=== PATIENT | female | born 1975 | race Two or more races ===

== ENCOUNTER 2024-05-25 12:17 | Emergency (ER) | payer MEDICAID, OTHER ==
[~2024-05-25] VITALS: Ht 162.6 cm; Wt 82.9 kg
[2024-05-25] MEDS ORDERED: BRIV1TAB7 PO ×2 (13:36→13:58)
[2024-05-25] MEDS ORDERED: PANT40TA2 PO (13:36)
--- NOTE | 2024-05-25 13:46 | ED.PDOC ---
History of Present Illness HPI Comments This is a 48-year-old female with multiple medical problems is here for refill on her Protonix as well as Brivlact. Patient has no physical complaints at this time. No history of recent seizures in the last couple of days. Chief Complaint: Seizure Time Seen by MD: 13:14 Primary Care Provider: NEGIN Rivera Notes: Nurses Notes, Medications, Allergies Allergies: Coded Allergies: Phenobarbital (Verified Allergy, Severe, 05/25/24) Information Source: Patient Mode of Arrival: Ambulatory Past Medical History PAST MEDICAL HISTORY: Seizures Past Medical History (Other): Hydrocephalus Cerebral palsy Surgical History: Denies all surgeries MEDICAL BILLING CODER History: No Pertinent MEDICAL BILLING CODER History Family History Family History: Reviewed,noncontributory to illness Social History Smoker: Non-Smoker Alcohol: Denies ETOH Use Drugs: Denies Drug Use Lives In: Home Constitutional: denies: chills, diaphoresis, fatigue, fever, malaise, sweats, weakness, others Respiratory: denies: cough, hemoptysis, orthopnea, SOB at rest, shortness of breath, SOB with excertion, stridor, wheezing, others Cardiovascular: denies: chest pain, dizzy spells, diaphoresis, Dyspnea on exertion, edema, irregular heart beat, left arm pain, lightheadedness, palpitations, PND, syncope, others Gastrointestinal: denies: abdomen distended, abdominal pain, blood streaked bowels, constipated, diarrhea, dysphagia, difficulty swallowing, hematemesis, melena, nausea, poor appetite, poor fluid intake, rectal bleeding, rectal pain, vomiting, others Genitourinary: denies: abnormal vagina bleeding, burning, dyspareunia, dysuria, flank pain, frequency, hematuria, incontinence, pain, , vagina discharge, urgency, others Musculoskeletal: denies: back pain, gout, joint pain, joint swelling, muscle pain, muscle stiffness, neck pain, others Integumetry: denies: bruises, change in color, change in hair/nails, dryness, laceration, lesions, lumps, rash, wounds, others Allergic/Immunocompromised: denies: Difficulty Healing, Frequent Infections, Hives, Itching, others Hematologic/Lymphatic: denies: anemia, blood clots, easy bleeding, easy bruising, swollen glands, others Physical Exam General Appearance: No Apparent Distress, None HEENT: Normal ENT Inspection, PERRL/EOMI, Pharynx Normal, TMs Normal Neck: Normal, Normal Inspection Respiratory: Lungs Clear, Normal Breath Sounds Cardiovascular: Regular Rate/Rhythm Breast Exam: Deferred Gastrointestinal: Non Tender, Normal Bowel Sounds Genitalia: Deferred Pelvic: Deferred Rectal: Deferred Extremities: Normal range of motion, Non-tender Neurologic: Alert, Normal Affect, Normal Mood Cerebellar Function: Normal Reflexes: NOT DONE Skin: Dry, Normal Color, Warm Lymphatic: No Adenopathy Was a procedure done? Was a procedure done?: No Differential Dx Considerations may include: Seizure activity X-Ray, Labs, Meds, VS Vital Signs Date Time Temp Pulse Resp B/P (MAP) Pulse Ox O2 Delivery O2 Flow Rate FiO2 05/25/24 12:49 98.3 75 16 143/74 (97) 99 X-Ray, Labs, Meds, VS Comment Patient seen and examined by me. Patient is here primarily for medication refill on her seizure meds plus her Protonix. She has no physical complaints. I will give her refills on both meds and she can follow up with her primary care doctor for further medications. Time of 1ST Reevaluation: 13:33 Reevaluation 1ST: Unchanged Patient Education/Counseling: Diagnosis, Treatment, Prognosis, Need For Follow Up Family Education/Counseling: No Family Present Departure 1 Departure Time of Disposition: 13:33 Impression: Primary Impression: Medication refill Disposition: 01 HOME / SELF CARE / HOMELESS Condition: Good Additional Instructions: Please follow-up with your regular doctor for future refills of your medications Start your medications right away after you fill the prescription today e-Prescriptions Pantoprazole Sodium Sesquihydr (Protonix) 40 Mg Tab 40 MG PO DAILY for 14 Days, #14 TAB Prov: GATO BACK 05/25/24 Discharged With: Self Critical Care Note Critical Care Time?: No Stability Stability form required: No GATO BACK May 25, 2024 13:46
[2024-05-25 13:47] VITALS: BP 143/74; PULSE 75; RESP 16; TEMP 98.3; O2SAT 99
== END 2024-05-25 13:47 | disposition home or self-care (01) ==
LOC: ER 12:17
DX: R56.9 Unspecified convulsions (principal); Z76.0 Encounter for issue of repeat prescription; Z88.8 Allergy status to other drugs, medicaments and biological substances

== ENCOUNTER 2024-08-22 18:08 | Inpatient (IN) | payer MEDICARE, MEDICAID ==
[~2024-08-22] VITALS: Ht 152.4 cm; Wt 83.4 kg
[~2024-08-22 18:08] MED LIST: BRIV1TAB7 PO; PANT40TA2 PO
--- NOTE | 2024-08-22 19:14 | DVH ---
EXAM: XR Right Shoulder Complete, 2 or More Views CLINICAL INDICATION: FALL R/O FX VS DISLOCATION TECHNIQUE: Two or more views of the right shoulder. COMPARISON: None FINDINGS: BONES/JOINTS: Unremarkable. No acute fracture. No dislocation. SOFT TISSUES: Unremarkable. OTHER FINDINGS: . None. IMPRESSION: No acute fracture.
--- NOTE | 2024-08-22 19:16 | DVH ---
EXAM: XY CERVICAL SPINE 3V HISTORY: FALL COMPARISON: None Findings: Patient probably has a ventricular peritoneal shunt along the right aspect of the neck. Lateral masses C1 and C2 are well aligned. There is loss of lordotic curvature ins lateral study ther e is retrolisthesis of C4 upon C5 of approximately 3 mm. There is probably generalized disc disease p revertebral soft tissues unremarkable. Airway is patent. IMPRESSION: 1. Probable underlying disc disease
--- NOTE | 2024-08-22 20:54 | ED.PDOC ---
Enrique. trauma (HPI) HPI Comments 49-year-old female came to ER for fall injury. Patient has history of cerebral palsy, and recently has been having Fall injuries. Had a ground level fall again earlier today when she slipped and tripped and landed badly on her right shoulder and neck area. Denies any head trauma or loss of consciousness. Patient complaining that she could not move her right arm. Chief Complaint: Fall Injury Time Seen by MD: 20:53 Primary Care Provider: NEGIN Rivera notes: Nurses Notes Allergies: Coded Allergies: Phenobarbital (Verified Allergy, Severe, 05/25/24) Home Meds Active Scripts Brivaracetam (Briviact) 100 Mg Tab, 100 MG PO BID for 30 Days, #60 TAB Prov:OLI VARGAS MD 05/25/24 Pantoprazole Sodium Sesquihydr (Protonix) 40 Mg Tab, 40 MG PO DAILY for 14 Days, #14 TAB Prov:GATO BACK 05/25/24 Reported Medications Brivaracetam (Briviact) 100 Mg Tab, 100 MG PO BID for 14 Days, #28 TAB 05/25/24 Information Source: Patient Mode of Arrival: Ambulatory Severity: Moderate Timing: Hours Duration: Since onset Prehospital treatment: None Location: Neck, (R) Shoulder Location of neck pain: (R) Lateral Location of laceration: None Mechanism: Fall Past Medical History PAST MEDICAL HISTORY: Seizures Past Medical History (Other): Cerebral palsy Surgical History: Denies all surgeries TALENT ADVISOR History: Denies all TALENT ADVISOR Hx Social History Smoker: Non-Smoker Alcohol: Denies ETOH Use Drugs: Denies Drug Use Lives In: Home Constitutional: denies: chills, diaphoresis, fatigue, fever, malaise, sweats, weakness, others Respiratory: denies: cough, hemoptysis, orthopnea, SOB at rest, shortness of breath, SOB with excertion, stridor, wheezing, others Cardiovascular: denies: chest pain, dizzy spells, diaphoresis, Dyspnea on exertion, edema, irregular heart beat, left arm pain, lightheadedness, palpitations, PND, syncope, others Gastrointestinal: denies: abdomen distended, abdominal pain, blood streaked bowels, constipated, diarrhea, dysphagia, difficulty swallowing, hematemesis, melena, nausea, poor appetite, poor fluid intake, rectal bleeding, rectal pain, vomiting, others Genitourinary: denies: abnormal vagina bleeding, burning, dyspareunia, dysuria, flank pain, frequency, hematuria, incontinence, pain, , vagina discharge, urgency, others Neurological: denies: dizziness, fainting, headache, left sided numbness, left sided weakness, numbness, paresthesia, pre-existing deficit, right sided numbness, right sided weakness, seizure, speech problems, tingling, tremors, weakness, others Musculoskeletal: reports: joint pain (Right shoulder), neck pain; denies: back pain, gout, joint swelling, muscle pain, muscle stiffness, others Integumetry: denies: bruises, change in color, change in hair/nails, dryness, laceration, lesions, lumps, rash, wounds, others Allergic/Immunocompromised: denies: Difficulty Healing, Frequent Infections, Hives, Itching, others Hematologic/Lymphatic: denies: anemia, blood clots, easy bleeding, easy bruising, swollen glands, others Endocrine: denies: excessive hunger, excessive sweating, excessive thirst, excessive urination, flushing, intolerance to cold, intolerance to heat, unexplained weight gain, unexplained weight loss, others Psychiatric: denies: anxiety, bipolar disorder, depression, hopeless, panic disorder, schizophrenia, sleepless, suicidal, others Physical Exam General Appearance: No Apparent Distress, Normal HEENT: Normal ENT Inspection, Pharynx Normal, TMs Normal Neck: Full Range of Motion, Non-Tender, Normal, Normal Inspection Respiratory: Chest Non-Tender, Lungs Clear, No Accessory Muscle Use, No Respiratory Distress, Normal Breath Sounds Cardiovascular: No Edema, No JVD, No Murmur, No Gallop, Normal Peripheral Pulses, Regular Rate/Rhythm Breast Exam: Deferred Gastrointestinal: No Organomegaly, Non Tender, No Pulsatile Mass, Normal Bowel Sounds, Soft Genitalia: Deferred Pelvic: Deferred Rectal: Deferred Extremities: No calf tenderness, Normal capillary refill, Normal inspection, Normal range of motion, Non-tender, No pedal edema Musculoskeletal : Apperance: Normal Neurologic: Alert, district adviser II-XII nml as Tested, No Motor Deficits, Normal Affect, Normal Mood, No Sensory Deficits Cerebellar Function: Normal Reflexes: Normal Skin: Dry, Normal Color, Warm Lymphatic: No Adenopathy Was a procedure done? Was a procedure done?: No Differential Diagnosis Multiple Trauma: Fractures, Abrasions, Contusion Neck Injury: Cervical Muscle Spasm, Cervical Sprain, Cervical Strain X-Ray, Labs, Meds, VS Vital Signs Date Time Temp Pulse Resp B/P (MAP) Pulse Ox O2 Delivery O2 Flow Rate FiO2 08/22/24 18:32 98.8 79 18 148/79 (102) 99 Lab Test 08/22/24 22:00 Range/Units White Blood Count 11.6 H 4.4-10.8 10^3/uL Red Blood Count 5.20 4.0-5.20 10^6/uL Hemoglobin 14.9 12.2-16.2 g/dL Hematocrit 44.4 36.0-46.0 % Mean Corpuscular Volume 85.4 80.0-100.0 fL Mean Corpuscular Hemoglobin 28.7 28.0-32.0 pg Mean Corpuscular Hemoglobin Concent 33.6 32.0-36.0 g/dL Red Cell Distribution Width 14.4 H 11.8-14.3 % Platelet Count 282 140-450 10^3/uL Mean Platelet Volume 7.3 6.9-10.8 fL Neutrophils (%) (Auto) 83.2 H 37.0-80.0 % Lymphocytes (%) (Auto) 11.7 10.0-50.0 % Monocytes (%) (Auto) 4.2 0.0-12.0 % Eosinophils (%) (Auto) 0.4 0.0-7.0 % Basophils (%) (Auto) 0.5 0.0-2.0 % Neutrophils # (Auto) 9.7 H 1.6-8.6 10 ^3/uL Lymphocytes # (Auto) 1.4 0.4-5.4 10 ^3/uL Monocytes # (Auto) 0.5 0-1.3 10 ^3/uL Eosinophils # (Auto) 0 0-0.8 10 ^3/uL Basophils # (Auto) 0.1 0-0.2 10 ^3/uL Nucleated Red Blood Cells 0.0 % Sodium Level Pending Potassium Level Pending Chloride Level Pending Carbon Dioxide Level Pending Anion Gap Pending Blood Urea Nitrogen Pending Creatinine Pending Glomerular Filtration Rate Calc Pending BUN/Creatinine Ratio Pending Serum Glucose Pending Calcium Level Pending Current Medications Medications (Trade) Dose Ordered Sig/Marcello Route Start Time Stop Time Status Last Admin Acetaminophen (Tylenol Tablet) 650 mg ONCE ONCE PO 08/22/24 21:00 08/22/24 21:31 DC 08/22/24 22:03 Time of 1ST Reevaluation: 20:47 Reevaluation 1ST: Unchanged Patient Education/Counseling: Diagnosis, Treatment Family Education/Counseling: No Family Present Departure 1 Departure Time of Disposition: 22:48 (Patient with a fall is now inability to lift her right arm. Imaging so far is benign. Patient may have a neurapraxia. We will admit patient for further workup and neurology consultation.) Impression: Primary Impression: Right arm weakness Disposition: ADMITTED INPATIENT Admit to: Med Surg Condition: Serious Critical Care Note Critical Care Time?: Yes Critical care comment: Right arm weakness Authorized and Performed by: Oli Vargas MD Total critical care time: Approximately 37 minutes Due to a high probability of clinically significant, life threatening deterioration, the patient required my highest level of preparedness to intervene emergently and I personally spent this critical care time directly and personally managing the patient. This critical care time included obtaining a history; examining the patient; pulse oximetry; ordering and review of studies; arranging urgent treatment with development of a management plan; evaluation of patient's response to treatment; frequent reassessment; and, discussions with other providers. This critical care time was performed to assess and manage the high probability of imminent, life-threatening deterioration that could result in multi-organ failure. It was exclusive of separately billable procedures and treating other patients and teaching time. Please see my other sections and the rest of the note for further information on patient assessment and treatment. Stability Stability form required: No Heart Score Heart Score: Heart Score Response (Comments) Value History N/A 0 EKG N/A 0 Age N/A 0 Risk Factors N/A 0 Troponin N/A 0 Total 0 I personally scribed for OLI VARGAS MD ([email or web address]) on 08/22/24 at 20:54. Electronically submitted by Pierre Rm ([employer]). I personally scribed for OLI VARGAS MD (CHIQUIS) on 08/22/24 at 21:02. Electronically submitted by Pierre Rm ([employer] OLI VARGAS MD Aug 22, 2024 20:54
--- NOTE | 2024-08-22 21:18 | DVH ---
EXAM: XY R HUMERUS XRAY CLINICAL HISTORY: fall COMPARISON: None TECHNIQUE: XY R HUMERUS XRAY Findings/Impression: 2 views of the right humerus. There is no evidence of an acute fracture, dislocation, blastic, or lytic lesions. No radiopaque foreign bodies. No superficial soft tissue abnormalities.
[2024-08-22] MEDS: ACETAMINOPHEN 325 MG TAB PO ONE (22:03)
[2024-08-22 22:27] LABS: Basophils # (auto) 0.1 10 ^3/uL (0-0.2); Basophils % (auto) 0.5 % (0.0-2.0); Eosinophils # (auto) 0 10 ^3/uL (0-0.8); Eosinophils % (auto) 0.4 % (0.0-7.0); Hematocrit 44.4 % (36.0-46.0); Hemoglobin 14.9 g/dL (12.2-16.2); Lymphocytes # (auto) 1.4 10 ^3/uL (0.4-5.4); Lymphocytes % (auto) 11.7 % (10.0-50.0); Mean Corpuscular Hemoglobin 28.7 pg (28.0-32.0); Mean Corpuscular Hgb Conc. 33.6 g/dL (32.0-36.0); Mean Corpuscular Volume 85.4 fL (80.0-100.0); Monocytes # (auto) 0.5 10 ^3/uL (0-1.3); Monocytes % (auto) 4.2 % (0.0-12.0); Neutrophils # (auto) 9.7 10 ^3/uL (1.6-8.6); Neutrophils % (auto) 83.2 % (37.0-80.0); Platelet Count (auto) 282 10^3/uL (140-450); Red Cell Distribution Width 14.4 % (11.8-14.3); White Blood Cell 11.6 10^3/uL (4.4-10.8)
--- NOTE | 2024-08-22 22:32 | DVH ---
CT HEAD WITHOUT CONTRAST INDICATION: right arm weakness COMPARISON: None TECHNIQUE: CT of the head without intravenous contrast. RADIATION DOSE: CTDIvol: mGy, DLP: mGy*cm FINDINGS: Right parietal VENEER STOCK GRADER shunt catheter noted with tip in the body of the left lateral ventricle. There is m ild right-sided colpocephaly; the ventricular size is otherwise unremarkable with no hydrocephalus. T here is no evidence of intracranial hemorrhage, extra-axial collection, mass effect, midline shift, herniation or hydrocephalus. 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 The sulci and cister ns are normal. Minimal mucosal thickening in left maxillary sinus; otherwise unremarkable. Mastoid ai r cells and middle ear cavities are clear. Right parietal aydee hole; calvarium is otherwise unremarka ble. IMPRESSION: No acute intracranial abnormality identified.
[2024-08-22 22:53] LABS: Potassium 3.5 mmol/L (3.5-5.1); Sodium 139 mmol/L (136-145)
[2024-08-22 22:54] LABS: Anion Gap 11 (5-15); Calcium 9.8 mg/dL (8.7-10.4)
[2024-08-22 23:00] LABS: BUN/Creatinine Ratio 15.3 (10.0-20.0); Blood Urea Nitrogen 9 mg/dL (9-23)
[2024-08-22 23:03] LABS: Carbon Dioxide 19 mmol/L (20-31); Chloride 109 mmol/L (98-107); Glucose 115 mg/dL (74-106)
[2024-08-23] MEDS ORDERED: DOCUSATE SOD 100 MG CAP PO PRN (01:15)
--- NOTE | 2024-08-23 01:56 | DVHHP2 ---
History of Present Illness Reason for Visit: Right arm weakness History of Present Illness The patient is a 49-year-old female with past medical history of seizure and cerebral palsy who presented to [facility] ED for evaluation of fall injury at home. Patient reports she had ground level fall earlier today when she slipped and fall landing badly on her right shoulder and neck area. Patient has been experiencing right hand pain, rating 9/10 numeric scale, weakness, getting worse that prompted this visit. Patient was seen and evaluated in the ED, laboratory data shows WBC 11.6, platelets 282, sodium 139, potassium 3.5, BUN 9, creatinine 0.59, GFR 110, glucose 115, calcium 9.8, blood pressure 140/79, heart rate 79, temperature 98.8 F, O2 saturation 99% on room air. Imaging reports showed no evidence of acute fracture, dislocation, blastic, lytic lesions. Please see medication orders section in the computer. On my assessment, patient denied chest pain, no headache, no dizziness, no loss of consciousness, no nausea, no vomiting, no fever, no chills. Patient was admitted for further evaluation and medical management. Past Medical History Seizures, Cerebral palsy Past Surgical History Denies all surgeries Family History Reviewed, noncontributory to the management of this case. Past Social History The patient lives at home, denies smoking, alcohol or illicit drugs abuse. Review of Systems Constitutional: Yes: Weakness; No: Fever, Chills, Sweats, Malaise, Other Eyes: No: Pain, Vision change, Conjunctivae inflammation, Eyelid inflammation, Other, Redness ENT: No: Ear pain, Ear discharge, Nose pain, Nose discharge, Nose congestion, Mouth pain, Mouth swelling, Throat pain, Throat swelling, Other Respiratory: No: Cough, Dry, Shortness of breath, SOB with excertion, Wheezing, Hemoptysis, Pleuritic Pain, Sputum, Wheezing, Other Cardiovascular: No: Chest Pain, Palpitations, Orthopnea, Paroxysmal Noc. Dyspnea, Edema, Lt Headedness, Other Gastrointestinal: No: Nausea, Vomiting, Abdominal Pain, Diarrhea, Constipation, Melena, Hematochezia, Other Genitourinary: No Dysuria, No Frequency, No Incontinence, No Hematuria, No Retention, No Other Musculoskeletal: neck pain, shoulder pain (Right); No: other, arm pain, back pain, hand pain, leg pain, foot pain Skin: No: Rash, Lesions, Jaundice, Bruising, Other Neurological: No: Weakness, Numbness, Incoordination, Change in speech, Confusion, Seizures, Other Allergies: Coded Allergies: Phenobarbital (Verified Allergy, Severe, 05/25/24) Medications Current Medications Medications Dose Ordered Sig/Marcello Route Start Time Stop Time Status Last Admin Dose Admin Pantoprazole Sodium 40 mg DAILY IV 08/23/24 10:00 Sodium Chloride 1,000 ml @ 60 mls/hr [id number] IV 08/23/24 01:15 Acetaminophen/ Hydrocodone Bitart 1 tab Q4HP PRN PO 08/23/24 01:15 Ondansetron HCl 4 mg Q4HP PRN IV 08/23/24 01:15 Docusate Sodium 100 mg BIDPRN PRN PO 08/23/24 01:15 Acetaminophen 650 mg Q6HP PRN PO 08/23/24 01:15 Exam Vital Signs Vital Signs Date Time Temp Pulse Resp B/P (MAP) Pulse Ox O2 Delivery O2 Flow Rate FiO2 08/22/24 18:32 98.8 79 18 148/79 (102) 99 General Appearance: Alert, Oriented X3, Cooperative, No acute distress HEENT: Atraumatic, PERRLA, EOMI, Mucous membr. moist/pink Respiratory: Clear to auscultation, Normal air movement Cardiovascular: Regular rate, Normal S1, Normal S2, No murmurs Abdominal: Normal bowel sounds, Soft, No tenderness, No hepatospenomegaly, No masses Extremities: No clubbing, No cyanosis, No edema, Normal pulses, No tenderness/swelling, Other (Right shoulder tenderness) Skin: No rashes, No breakdown, No significant lesion Neuro: Normal speech, Normal tone, Sensation intact, Cranial nerves 3-12 NL, Reflexes 2+, Other (Generalized weakness) Psych/Mental Status: Mental status NL, Mood NL Labs/Xrays Labs Test 08/22/24 22:00 Range/Units White Blood Count 11.6 H 4.4-10.8 10^3/uL Red Blood Count 5.20 4.0-5.20 10^6/uL Hemoglobin 14.9 12.2-16.2 g/dL Hematocrit 44.4 36.0-46.0 % Mean Corpuscular Volume 85.4 80.0-100.0 fL Mean Corpuscular Hemoglobin 28.7 28.0-32.0 pg Mean Corpuscular Hemoglobin Concent 33.6 32.0-36.0 g/dL Red Cell Distribution Width 14.4 H 11.8-14.3 % Platelet Count 282 140-450 10^3/uL Mean Platelet Volume 7.3 6.9-10.8 fL Neutrophils (%) (Auto) 83.2 H 37.0-80.0 % Lymphocytes (%) (Auto) 11.7 10.0-50.0 % Monocytes (%) (Auto) 4.2 0.0-12.0 % Eosinophils (%) (Auto) 0.4 0.0-7.0 % Basophils (%) (Auto) 0.5 0.0-2.0 % Neutrophils # (Auto) 9.7 H 1.6-8.6 10 ^3/uL Lymphocytes # (Auto) 1.4 0.4-5.4 10 ^3/uL Monocytes # (Auto) 0.5 0-1.3 10 ^3/uL Eosinophils # (Auto) 0 0-0.8 10 ^3/uL Basophils # (Auto) 0.1 0-0.2 10 ^3/uL Nucleated Red Blood Cells 0.0 % Sodium Level 139 136-145 mmol/L Potassium Level 3.5 3.5-5.1 mmol/L Chloride Level 109 H 98-107 mmol/L Carbon Dioxide Level 19 L 20-31 mmol/L Anion Gap 11 5-15 Blood Urea Nitrogen 9 9-23 mg/dL Creatinine 0.59 0.550-1.02 mg/dL Glomerular Filtration Rate Calc 110 >90 mL/min BUN/Creatinine Ratio 15.3 10.0-20.0 Serum Glucose 115 H 74-106 mg/dL Calcium Level 9.8 8.7-10.4 mg/dL PATIENT: TANYA PRICE ACCT: [id number] UNIT: [id number] : 1975 LOC: ER ROOM / BED: / AGE / SEX: 49 / F ADM STATUS: REG ER SERVICE [id number] ORDERING PHYSICIAN: MERCEDES RAMIREZ MD PROCEDURE(s): CERV2 - CERVICAL SPINE 3V REASON: FALL ORDER NUMBER(s): [id number], ACCESSION NUMBER(s): [id number] EXAM: XY CERVICAL SPINE 3V HISTORY: FALL COMPARISON: None Findings: Patient probably has a ventricular peritoneal shunt along the right aspect of the neck. Lateral masses C1 and C2 are well aligned. There is loss of lordotic curvature ins lateral study there is retrolisthesis of C4 upon C5 of approximately 3 mm. There is probably generalized disc disease prevertebral soft tissues unrema rkable. Airway is patent. IMPRESSION: 1. Probable underlying disc disease ORDERING PHYSICIAN: MERCEDES RAMIREZ MD PROCEDURE(s): RSHD2 - R SHOULDER 2+ VIEW XRAY REASON: FALL R/O FX VS DISLOCATION ORDER NUMBER(s): [id number], ACCESSION NUMBER(s): [id number] EXAM: XR Right Shoulder Complete, 2 or More Views CLINICAL INDICATION: FALL R/O FX VS DISLOCATION TECHNIQUE: Two or more views of the right shoulder. COMPARISON: None FINDINGS: BONES/JOINTS: Unremarkable. No acute fracture. No dislocation. SOFT TISSUES: Unremarkable. OTHER FINDINGS: None. IMPRESSION: No acute fracture. ORDERING PHYSICIAN: OLI VORA MD PROCEDURE(s): RHUM - R HUMERUS XRAY REASON: fall ORDER NUMBER(s): [id number], ACCESSION NUMBER(s): [id number] EXAM: XY R HUMERUS XRAY CLINICAL HISTORY: fall COMPARISON: None TECHNIQUE: XY R HUMERUS XRAY Findings/Impression: 2 views of the right humerus. There is no evidence of an acute fracture, dislocation, blastic, or lytic lesions. No radiopaque foreign bodies. No superficial soft tissue abnormalities. ORDERING PHYSICIAN: OLI VORA MD PROCEDURE(s): HWOCT - HEAD WITHOUT CONTRAST REASON: right arm weakness ORDER NUMBER(s): [id number], ACCESSION NUMBER(s): [id number] CT HEAD WITHOUT CONTRAST INDICATION: right arm weakness COMPARISON: None TECHNIQUE: CT of the head without intravenous contrast. RADIATION DOSE: CTDIvol: mGy, DLP: mGy*cm FINDINGS: Right parietal MEDICAL EXAMINER shunt catheter noted with tip in the body of the left lateral ventricle. There is mild right-sided colpocephaly; the ventricular size is otherwise unremarkable with no hydrocephalus. There is no evidence of intracranial hemorrhage, extra-axial collection, mass effect, midline shift, herniation or hydrocephalus. 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 The sulci and cisterns are normal. Minimal mucosal thickening in left maxillary sinus; otherwise unremarkable. Mastoid air cells and middle ear cavities are clear. Right parietal aydee hole; calvarium is otherwise unremarkable. IMPRESSION: No acute intracranial abnormality identified. Assessment/Plan Assessment/Plan Right arm weakness Right shoulder pain Generalized weakness Leukocytosis, unspecified Plan 1. Admit to med surge unit 2. Breathing treatment 3. Pain control management 4. Management of fluids and electrolytes 5. Consultation for hospitalist 6. Diagnostic tests shoulder x-ray 7. DVT prophylaxis on SCDs 8. Repeat labs CBC, CMP in a.m. 9. Continue with current medical management 10. Treatment plan discussed with patient and RN. Patient verbalized understanding. Plan discussed with: Patient, Other (RN) My Orders Orders - SAMREEN ARNETT DNP Procedure Category Date Status Time Complete Blood Count LAB 08/23/24 Logged 04:00 Comprehensive LAB 08/23/24 Logged Metabolic Panel 04:00 Pantoprazole PHA 08/23/24 In Process (Protonix) 10:00 Allergies AUGUST 08/23/24 In Process 01:13 Code Status CODE 08/23/24 Transmitted 01:13 Sodium Chloride 0.9% PHA 08/23/24 In Process 01:15 Oxygen Per Hour RT 08/23/24 Transmitted 01:13 Hydrocodone-Acet PHA 08/23/24 In Process 5/325mg Tab (Jewett 01:15 Ondansetron Hcl PHA 08/23/24 In Process (Zofran) 01:15 Docusate Sodium PHA 08/23/24 In Process Capsule (Colace 01:15 Fall Risk Precautions AUGUST 08/23/[address] 01:13 Complete Blood Count LAB 08/24/24 Verified 04:00 Comprehensive LAB 08/24/24 Verified Metabolic Panel 04:00 Cardiac DIET 08/23/24 Transmitted Diet-2gna,Lofat,Lochol Breakfast Condition: Serious AUGUST 08/23/24 In Process 01:13 Acetaminophen Tablet PHA 08/23/24 In Process (Tylenol Tablet) 01:15 Sequential AUGUST 08/23/24 In Process Compression Device Problem List: (1) Right arm weakness (2) Leukocytosis, unspecified (3) Right shoulder pain (4) Generalized weakness Date of Service: Aug 23, 2024 Billing Provider: SAMREEN ARNETT DNP Common Visit Codes: [id number] INP/OBS CARE (HIGH) SAMREEN ARNETT DNP Aug 23, 2024 01:56
[2024-08-23] MEDS ORDERED: NITROGLYCERIN 0.4 MG SL TAB SL PRN (02:00)
[2024-08-23] MEDS ORDERED: MORPHINE SULFATE INJ 2 MG/ml SYRG IV PRN (02:00)
[2024-08-23] MEDS: SODIUM CHLORIDE 0.9% 1,000 ML IV SCH (02:37)
[2024-08-23 02:58] VITALS: BP 146/73; PULSE 67; RESP 17; TEMP 98; O2SAT 100
[2024-08-23] MEDS: MORPHINE SULFATE INJ 2 MG/ml SYRG IV PRN (03:56)
[2024-08-23 06:10] VITALS: PULSE 69; RESP 18; O2SAT 8
[2024-08-23 07:12] LABS: Basophils # (auto) 0.1 10 ^3/uL (0-0.2); Basophils % (auto) 0.8 % (0.0-2.0); Eosinophils # (auto) 0.1 10 ^3/uL (0-0.8); Eosinophils % (auto) 0.8 % (0.0-7.0); Hematocrit 44.4 % (36.0-46.0); Hemoglobin 14.8 g/dL (12.2-16.2); Lymphocytes # (auto) 1.5 10 ^3/uL (0.4-5.4); Lymphocytes % (auto) 15.5 % (10.0-50.0); Mean Corpuscular Hemoglobin 28.2 pg (28.0-32.0); Mean Corpuscular Hgb Conc. 33.4 g/dL (32.0-36.0); Mean Corpuscular Volume 84.5 fL (80.0-100.0); Monocytes # (auto) 0.6 10 ^3/uL (0-1.3); Neutrophils # (auto) 7.3 10 ^3/uL (1.6-8.6); Neutrophils % (auto) 76.9 % (37.0-80.0); Nucleated Red Blood Cells % 0.1 %; Platelet Count (auto) 243 10^3/uL (140-450); Red Blood Cells 5.25 10^6/uL (4.0-5.20); Red Cell Distribution Width 14.3 % (11.8-14.3); White Blood Cell 9.6 10^3/uL (4.4-10.8)
[2024-08-23 07:37] VITALS: PULSE 86; RESP 21; O2SAT 94
[2024-08-23 07:39] LABS: Alanine Aminotransferase 18 U/L (7-40); Albumin 4.3 g/dL (3.2-4.8); Anion Gap 10 (5-15); Aspartate Aminotransferase 28 U/L (13-40); BUN/Creatinine Ratio 9.8 (10.0-20.0); Calcium 9.2 mg/dL (8.7-10.4); Carbon Dioxide 21 mmol/L (20-31); Sodium 139 mmol/L (136-145)
[2024-08-23 07:40] LABS: Bilirubin, Total 0.4 mg/dL (0.2-1.0)
[2024-08-23 07:42] LABS: Alkaline Phosphatase 127 U/L (46-116); Blood Urea Nitrogen 6 mg/dL (9-23); Chloride 108 mmol/L (98-107); Glucose 108 mg/dL (74-106); Potassium 3.5 mmol/L (3.5-5.1)
[2024-08-23] MEDS: HYDROcodone-ACET 5/325MG TAB PO PRN (08:04)
[2024-08-23] MEDS: ONDANSETRON HCL 4 MG/2 ML VIAL IV PRN (08:46)
[2024-08-23] MEDS: ACETAMINOPHEN 325 MG TAB PO PRN (08:54)
--- NOTE | 2024-08-23 10:03 | DVHPN2 ---
Subjective Continue to complain of right arm pain Reviewed: Care Plan, H&P, Labs, Medications, Previous Orders, Radiology Changes from previous H/P or p: No Changes Objective Vitals Vital Signs Date Time Temp Pulse Resp B/P (MAP) Pulse Ox O2 Delivery O2 Flow Rate FiO2 08/23/24 08:31 67 13 140/79 (99) 95 08/23/24 07:37 Room Air* 0 21 08/23/24 07:37 98.7 98.7 General Appearance: Alert, Oriented X3, Cooperative, No acute distress HEENT: Atraumatic Lungs: Clear to auscultation, Normal air movement Cardiovascular: Regular rate, Normal S1, Normal S2 Abdomen: Normal bowel sounds, Soft, No tenderness Extremities: Other (Tender right arm and shoulder with early signs of bruising) Neuro: Normal speech (But slow due to cerebral palsy), Cranial nerves 3-12 NL Psych/Mental Status: Mental status NL, Mood NL Medications Current Medications Medications Dose Ordered Sig/Marcello Route Start Time Stop Time Status Last Admin Dose Admin Pantoprazole Sodium 40 mg DAILY IV 08/23/24 10:00 Sodium Chloride 1,000 ml @ 60 mls/hr [id number] IV 08/23/24 01:15 Acetaminophen/ Hydrocodone Bitart 1 tab Q4HP PRN PO 08/23/24 01:15 08/23/24 08:04 1 TAB Ondansetron HCl 4 mg Q4HP PRN IV 08/23/24 01:15 08/23/24 08:46 4 MG Docusate Sodium 100 mg BIDPRN PRN PO 08/23/24 01:15 Acetaminophen 650 mg Q6HP PRN PO 08/23/24 01:15 08/23/24 08:54 650 MG Nitroglycerin 0.4 mg Q5MINP PRN SL 08/23/24 02:00 Morphine Sulfate 2 mg Q30M PRN IV 08/23/24 02:00 Morphine Sulfate 2 mg Q4HPRN PRN IV 08/23/24 03:45 08/23/24 03:56 2 MG Levetiracetam 100 ml @ 400 mls/hr BID IV 08/23/24 10:00 Laboratory Results Laboratory Tests 08/23/24 07:01 Chemistry Test 08/22/24 22:00 08/23/24 07:01 Calcium Level 9.8 mg/dL (8.7-10.4) 9.2 mg/dL (8.7-10.4) Albumin 4.3 g/dL (3.2-4.8) Total Protein 7.0 g/dL (5.7-8.2) LFT Test 08/23/24 07:01 Alanine Aminotransferase (ALT) 18 U/L (7-40) Alkaline Phosphatase 127 U/L (46-116) H Aspartate Amino Transferase (AST) 28 U/L (13-40) Total Bilirubin 0.4 mg/dL (0.2-1.0) Labs and/or images reviewed: Labs reviewed by me, Image(s) reviewed by me Assessment/Plan Assessment/Plan A 49-year-old female patient; multiple comorbidities; who presented to emergency department with right arm pain after a mechanical fall. #Right arm pain due to mechanical fall; reviewed the available imaging studies; no fractures; continue pain management as indicated; we will consult physical therapy when pain is controlled; continue monitoring #Mechanical fall; no signs/symptoms of seizures activity causing the fall after discussing the case with the patient's mother; fall precautions; continue monitoring #Leukocytosis; mild; most likely reactive; to discontinue oral antibiotics; continue monitoring #Elevated alkaline phosphatase; most likely due to fall; continue monitoring #Cerebral palsy with hydrocephalus status post [employer] SOL[employer]CHIT[employer] shunt; reviewed head CT; no active issues; patient's mother is her caregiver; continue monitoring #Seizure disorder; no seizure activity; continue antiepileptic medications; seizures precautions; continue monitoring #Obesity; counseled the patient on the importance of adopting healthy lifestyle with diet and exercise in order to lose weight; continue monitoring Goals of care discussed with the patient for 20 minutes; full code Late Entry. This medical document was created using an electronic medical record system with computerized dictation system. Although this document has been carefully reviewed, there might still be some phonetic and typographical errors. These areas are purely typographical due to imperfections of the software programs, and do not reflect any compromise in the patient's medical care. Plan discussed with: Patient, Other (Mother; nurse) Date of Service: Aug 23, 2024 Billing Provider: SHADIA CONWAY MD Common Visit Codes: [id number] INP/OBS CARE(HIGH) Secondary Visit Codes: [id number] CARE PLAN 30 MINUTES (20 minutes) SHADIA CONWAY MD Aug 23, 2024 10:03
[2024-08-23] MEDS: PANTOPRAZOLE 40 MG/10 ML VIAL INJ IV SCH (10:41)
[2024-08-23] MEDS: levETIRAcetam 500 mg/100ml 100 ML IV SCH (10:41)
[2024-08-23] MEDS ORDERED: TOPI100T68 PO (14:02)
[2024-08-23] MEDS ORDERED: CARB200T4 PO ×2 (14:06→14:09)
[2024-08-23] MEDS ORDERED: FERR325T20 PO (14:11)
[2024-08-23] MEDS ORDERED: PANT40TA2 PO (14:15)
[2024-08-23] MEDS ORDERED: CYA100I IM (14:17)
[2024-08-23] MEDS ORDERED: LATA0.008 EACHEYE (14:18)
[2024-08-23] MEDS ORDERED: KRIL1CAP14 PO (14:21)
[2024-08-23] MEDS ORDERED: FOLI-119 PO (14:34)
[2024-08-23 15:09] LABS: Urine Bacteria None Seen /hpf (None Seen)
[2024-08-23 15:26] LABS: Urine Blood Negative /uL (Negative); Urine Clarity Clear (Clear); Urine Color Light-Yellow (Yellow); Urine Protein, UAD Negative (Negative); Urine Specific Gravity 1.015 (1.001-1.035); Urine Squamous Epithelial Cell None Seen /hpf (<5); Urine Urobilinogen Normal (Negative); Urine pH 6.5 (5.0-9.0)
[2024-08-23 16:16] LABS: Urine WBC < 1 /HPF (0-5)
[2024-08-23 19:17] VITALS: PULSE 83; RESP 20; O2SAT 96
[2024-08-23] MEDS ORDERED: LORazepam 2MG/ML-1ML VIAL IV PRN (20:45)
[2024-08-23 22:00] VITALS: BP 140/74; PULSE 83; RESP 18; TEMP 98.2; O2SAT 96
[2024-08-23] MEDS: levETIRAcetam 500 MG/5ML INJ IV ONE (22:15)
[2024-08-23] MEDS: CEPHALEXIN 250 MG CAP PO SCH (22:48)
[2024-08-24] VITALS (8 sets, daily range): BP systolic 129–159; BP diastolic 64–82; PULSE 72–98; RESP 17–19; TEMP 96.8–99.3; O2SAT 92–95
--- NOTE | 2024-08-24 06:25 | DVH ---
EXAM: XY R KNEE 3V XRAY CLINICAL INDICATION: Fall with right knee pain TECHNIQUE: XY R KNEE 3V XRAY Comparison: None FINDINGS/IMPRESSION: There is no evidence of acute fracture or dislocation. The visualized joint space is well maintained. The alignment is anatomical. There is no radiopaque foreign body.
[2024-08-24 08:00] LABS: Basophils # (auto) 0 10 ^3/uL (0-0.2); Basophils % (auto) 0.4 % (0.0-2.0); Eosinophils # (auto) 0 10 ^3/uL (0-0.8); Eosinophils % (auto) 0.3 % (0.0-7.0); Hematocrit 46.9 % (36.0-46.0); Hemoglobin 15.1 g/dL (12.2-16.2); Lymphocytes # (auto) 1.3 10 ^3/uL (0.4-5.4); Lymphocytes % (auto) 13.5 % (10.0-50.0); Mean Corpuscular Hemoglobin 27.5 pg (28.0-32.0); Mean Corpuscular Hgb Conc. 32.1 g/dL (32.0-36.0); Mean Corpuscular Volume 85.7 fL (80.0-100.0); Monocytes # (auto) 0.7 10 ^3/uL (0-1.3); Monocytes % (auto) 6.6 % (0.0-12.0); Neutrophils # (auto) 7.9 10 ^3/uL (1.6-8.6); Neutrophils % (auto) 79.2 % (37.0-80.0); Nucleated Red Blood Cells % 0.1 %; Platelet Count (auto) 256 10^3/uL (140-450); Red Blood Cells 5.47 10^6/uL (4.0-5.20); Red Cell Distribution Width 14.4 % (11.8-14.3)
[2024-08-24 10:43] LABS: Alanine Aminotransferase 25 U/L (7-40); Albumin 4.3 g/dL (3.2-4.8); Anion Gap 14 (5-15); Aspartate Aminotransferase 38 U/L (13-40); BUN/Creatinine Ratio 11.3 (10.0-20.0); Calcium 9.8 mg/dL (8.7-10.4); Glucose 101 mg/dL (74-106); Potassium 3.6 mmol/L (3.5-5.1); Sodium 143 mmol/L (136-145)
[2024-08-24 10:44] LABS: Bilirubin, Total 0.4 mg/dL (0.2-1.0)
[2024-08-24 11:12] LABS: Alkaline Phosphatase 118 U/L (46-116); Blood Urea Nitrogen 6 mg/dL (9-23); Carbon Dioxide 15 mmol/L (20-31); Chloride 114 mmol/L (98-107)
--- NOTE | 2024-08-24 12:47 | DVHPN2 ---
Subjective Continue to complain of right arm pain and inability to move right upper extremity Reviewed: Care Plan, H&P, Labs, Medications, Previous Orders, Radiology Changes from previous H/P or p: No Changes Objective Vitals Vital Signs Date Time Temp Pulse Resp B/P (MAP) Pulse Ox O2 Delivery O2 Flow Rate FiO2 08/24/24 09:00 98.4 72 17 159/81 (107) 94 98.4 08/23/24 19:17 Room Air* 0 21 Intake/Output Intake and Output 08/24/24 07:00 Intake Total 160 ml Balance 160 ml Intake IV Total 160 ml General Appearance: Alert, Oriented X3, Cooperative, No acute distress HEENT: Atraumatic Lungs: Clear to auscultation, Normal air movement Cardiovascular: Regular rate, Normal S1, Normal S2 Abdomen: Normal bowel sounds, Soft, No tenderness Musculoskeletal: Other (Passive movement of right upper extremity; limited active movement of right lower extremity) Extremities: Other (Tender right arm and shoulder with early signs of bruising) Neuro: Normal speech (But slow due to cerebral palsy), Cranial nerves 3-12 NL Psych/Mental Status: Mental status NL, Mood NL Medications Current Medications Medications Dose Ordered Sig/Marcello Route Start Time Stop Time Status Last Admin Dose Admin Pantoprazole Sodium 40 mg DAILY IV 08/23/24 10:00 08/24/24 09:16 40 MG Sodium Chloride 1,000 ml @ 60 mls/hr [id number] IV 08/23/24 01:15 08/24/24 10:35 60 MLS/HR Acetaminophen/ Hydrocodone Bitart 1 tab Q4HP PRN PO 08/23/24 01:15 08/24/24 09:15 1 TAB Ondansetron HCl 4 mg Q4HP PRN IV 08/23/24 01:15 08/23/24 08:46 4 MG Docusate Sodium 100 mg BIDPRN PRN PO 08/23/24 01:15 Acetaminophen 650 mg Q6HP PRN PO 08/23/24 01:15 08/23/24 22:57 650 MG Nitroglycerin 0.4 mg Q5MINP PRN SL 08/23/24 02:00 Morphine Sulfate 2 mg Q30M PRN IV 08/23/24 02:00 Morphine Sulfate 2 mg Q4HPRN PRN IV 08/23/24 03:45 08/23/24 03:56 2 MG Levetiracetam 100 ml @ 400 mls/hr BID IV 08/23/24 10:00 08/24/24 11:08 400 MLS/HR Lorazepam 1 mg Q8HP PRN IV 08/23/24 20:45 Laboratory Results Laboratory Tests 08/24/24 06:46 Chemistry Test 08/24/24 06:46 Albumin 4.3 g/dL (3.2-4.8) Calcium Level 9.8 mg/dL (8.7-10.4) Total Protein 7.0 g/dL (5.7-8.2) LFT Test 08/24/24 06:46 Alanine Aminotransferase (ALT) 25 U/L (7-40) Alkaline Phosphatase 118 U/L (46-116) H Aspartate Amino Transferase (AST) 38 U/L (13-40) Total Bilirubin 0.4 mg/dL (0.2-1.0) Urinalysis Test 08/23/24 06:30 Urine Color Light-yellow (Yellow) Urine Clarity Clear (Clear) Urine pH 6.5 (5.0-9.0) Urine Specific [place] 1.015 (1.001-1.035) Urine Protein Negative (Negative) Urine Ketones Trace (Negative) Urine Blood Negative /uL (Negative) Urine Nitrite Negative (Negative) Urine Bilirubin Negative (Negative) Urine Urobilinogen Normal mg/dL (Negative) Urine Leukocyte Esterase Negative /uL (Negative) Urine RBC None seen /hpf (0 - 4) Urine Microscopic WBC < 1 /HPF (0-5) Urine Squamous Epithelial Cells None seen /hpf (<5) Urine Bacteria None seen /hpf (None Seen) Urine Glucose Normal mg/dL (Normal) Labs and/or images reviewed: Labs reviewed by me, Image(s) reviewed by me Assessment/Plan Assessment/Plan A 49-year-old female patient; multiple comorbidities; who presented to emergency department with right arm pain after a mechanical fall. #Right arm pain due to mechanical fall; reviewed the available imaging studies; no fractures on x-rays; ordered right shoulder CT as the patient continues to be unable to move right upper extremity; continue pain management as indicated; will consult physical therapy when pain is controlled and after ruling out fracture by CT; continue monitoring #Mechanical fall; no signs/symptoms of seizures activity causing the fall after discussing the case with the patient's mother; fall precautions; continue monitoring #Leukocytosis; mild; most likely reactive; was on oral antibiotics; continue monitoring #Elevated alkaline phosphatase; most likely due to fall; continue monitoring #Cerebral palsy with hydrocephalus 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 This medical document was created using an electronic medical record system with computerized dictation system. Although this document has been carefully reviewed, there might still be some phonetic and typographical errors. These areas are purely typographical due to imperfections of the software programs, and do not reflect any compromise in the patient's medical care. Plan discussed with: Patient, Other (Nurse) My Orders Orders - SHADIA CONWAY MD Procedure Category Date Status Time Seizure Precautions ED NURSING 08/24/24 Transmitted Pt Request For Service PT 08/24/24 Logged 07:29 Ct R Shoulder Wo CT 08/24/24 Taken Contrast 10:53 Date of Service: Aug 24, 2024 Billing Provider: SHADIA CONWAY MD Common Visit Codes: [id number] INP/OBS CARE(HIGH) SHADIA CONWAY MD Aug 24, 2024 12:47
--- NOTE | 2024-08-24 14:31 | DVH ---
CLINICAL INFORMATION: Right shoulder pain. Unable to move right upper extremity. TECHNIQUE: Axial CT images of the right shoulder were obtained without IV contrast. Coronal and sagit hadley reformatted images were obtained, reviewed, and stored. All CT scans at this medical facility ar e performed using dose modulation techniques as appropriate to a performed exam including the followi ng: Automated exposure control was utilized; adjustment of the MA and/or KV according to patient size ; and use of iterative reconstruction technique. CTDIvol = 30.66 mGy DLP = 742.8 mGy-cm COMPARISON: Radiographs dated 08/22/2024 FINDINGS: No evidence of acute fracture or dislocation mild arthritic changes of the acromioclavicula r joint mild arthritic changes of the glenohumeral joint acromiohumeral interval is within normal almeida its. No widening of the acromioclavicular joints visualized musculature appears grossly unremarkable in its CT appearance. No fatty atrophy. No soft tissue mass or fluid collection identified. Visualize d portions of the lungs demonstrate multiple pulmonary cysts. IMPRESSION: 1. No evidence of acute bony abnormality. No significant soft tissue abnormality identified. If clini ruth indicated, MRI could be obtained to further evaluate given the patient's clinical symptoms. 2. Multiple pulmonary cysts in the visualized portions of the right lung
[2024-08-24] MEDS: ARTIFICIAL TEARS 15ml EACHEYE PRN (15:54)
[2024-08-25] VITALS (8 sets, daily range): BP systolic 139–173; BP diastolic 68–92; PULSE 76–103; RESP 16–20; TEMP 97.9–98.9; O2SAT 92–98
--- NOTE | 2024-08-25 20:19 | DVHPN2 ---
Subjective in bed resting Reviewed: Care Plan, H&P, Labs, Medications, Previous Orders, Radiology Changes from previous H/P or p: No Changes Objective Vitals Vital Signs Date Time Temp Pulse Resp B/P (MAP) Pulse Ox O2 Delivery O2 Flow Rate FiO2 08/25/24 16:52 98.0 103 20 143/86 (105) 92 98.0 08/25/24 08:00 Room Air* 0 21 Intake/Output Intake and Output 08/25/24 07:00 Intake Total 1715 ml Output Total 6 ml Balance 1709 ml Intake Oral 1615 ml IV Total 100 ml Output Urine Total 6 ml # Voids 8 # Bowel Movements 3 General Appearance: Alert, Oriented X3, Cooperative, No acute distress HEENT: Atraumatic Lungs: Clear to auscultation, Normal air movement Cardiovascular: Regular rate, Normal S1, Normal S2 Abdomen: Normal bowel sounds, Soft, No tenderness Musculoskeletal: Other (Passive movement of right upper extremity; limited active movement of right lower extremity) Extremities: Other (Tender right arm and shoulder with early signs of bruising) Neuro: Normal speech (But slow due to cerebral palsy), Cranial nerves 3-12 NL Psych/Mental Status: Mental status NL, Mood NL Medications Current Medications Medications Dose Ordered Sig/Marcello Route Start Time Stop Time Status Last Admin Dose Admin Pantoprazole Sodium 40 mg DAILY IV 08/23/24 10:00 08/25/24 10:18 40 MG Sodium Chloride 1,000 ml @ 60 mls/hr [id number] IV 08/23/24 01:15 08/25/24 02:50 60 MLS/HR Acetaminophen/ Hydrocodone Bitart 1 tab Q4HP PRN PO 08/23/24 01:15 08/24/24 09:15 1 TAB Ondansetron HCl 4 mg Q4HP PRN IV 08/23/24 01:15 08/23/24 08:46 4 MG Docusate Sodium 100 mg BIDPRN PRN PO 08/23/24 01:15 Acetaminophen 650 mg Q6HP PRN PO 08/23/24 01:15 08/24/24 21:03 650 MG Nitroglycerin 0.4 mg Q5MINP PRN SL 08/23/24 02:00 Morphine Sulfate 2 mg Q30M PRN IV 08/23/24 02:00 Morphine Sulfate 2 mg Q4HPRN PRN IV 08/23/24 03:45 08/23/24 03:56 2 MG Levetiracetam 100 ml @ 400 mls/hr BID IV 08/23/24 10:00 08/25/24 10:18 400 MLS/HR Lorazepam 1 mg Q8HP PRN IV 08/23/24 20:45 Artificial Tears 1 drop Q2HP PRN EACHEYE 08/24/24 14:00 08/25/24 10:18 1 DROP Laboratory Results Laboratory Tests 08/24/24 06:46 Urinalysis Test 08/23/24 06:30 Urine Color Light-yellow (Yellow) Urine Clarity Clear (Clear) Urine pH 6.5 (5.0-9.0) Urine Specific [place] 1.015 (1.001-1.035) Urine Protein Negative (Negative) Urine Ketones Trace (Negative) Urine Blood Negative /uL (Negative) Urine Nitrite Negative (Negative) Urine Bilirubin Negative (Negative) Urine Urobilinogen Normal mg/dL (Negative) Urine Leukocyte Esterase Negative /uL (Negative) Urine RBC None seen /hpf (0 - 4) Urine Microscopic WBC < 1 /HPF (0-5) Urine Squamous Epithelial Cells None seen /hpf (<5) Urine Bacteria None seen /hpf (None Seen) Urine Glucose Normal mg/dL (Normal) Assessment/Plan Assessment/Plan A 49-year-old female patient; multiple comorbidities; who presented to emergency department with right arm pain after a mechanical fall. #Right arm pain due to mechanical fall; reviewed the available imaging studies; no fractures on x-rays; ordered right shoulder CT as the patient continues to be unable to move right upper extremity; continue pain management as indicated; will consult physical therapy when pain is controlled and after ruling out fracture by CT; continue monitoring #Mechanical fall; no signs/symptoms of seizures activity causing the fall after discussing the case with the patient's mother; fall precautions; continue monitoring #Leukocytosis; mild; most likely reactive; was on oral antibiotics; continue monitoring #Elevated alkaline phosphatase; most likely due to fall; continue monitoring #Cerebral palsy with hydrocephalus status post [employer] shunt; reviewed head CT; no active issues; patient's mother is her caregiver; continue monitoring #Seizure disorder; no seizure activity; continue antiepileptic medications; seizures precautions; continue monitoring #Obesity; counseled the patient on the importance of adopting healthy lifestyle with diet and exercise in order to lose weight; continue monitoring Dispo: Plant to [place] home tomorrow Plan discussed with: Patient Date of Service: Aug 25, 2024 Billing Provider: BRAYDEN BRAY MD Common Visit Codes: [id number] INP/OBS CARE(HIGH) BRAYDEN BRAY MD Aug 25, 2024 20:19
[2024-08-26 00:54] VITALS: BP 130/69; PULSE 63; RESP 14; TEMP 99.1; O2SAT 92
[2024-08-26 05:00] VITALS: BP 143/89; PULSE 93; RESP 20; TEMP 98.7; O2SAT 94
[2024-08-26 08:00] VITALS: PULSE 91; RESP 19; O2SAT 94
[2024-08-26 08:35] VITALS: BP 145/94; PULSE 91; RESP 19; TEMP 97.9; O2SAT 94
[2024-08-26 10:56] VITALS: BP 145/94; PULSE 19; RESP 94; TEMP 97.9; O2SAT 91
--- NOTE | 2024-08-26 14:49 | DVHDS2 ---
Discharge Summary Date of Admission Aug 23, 2024 at 01:55 Date of Discharge: Aug 26, 2024 Labs/Diagnostic Data: Laboratory Results Test 08/24/24 06:46 08/23/24 06:30 White Blood Count 10.0 10^3/uL (4.4-10.8) Red Blood Count 5.47 10^6/uL (4.0-5.20) Hemoglobin 15.1 g/dL (12.2-16.2) Hematocrit 46.9 % (36.0-46.0) Mean Corpuscular Volume 85.7 fL (80.0-100.0) Mean Corpuscular Hemoglobin 27.5 pg (28.0-32.0) Mean Corpuscular Hemoglobin Concent 32.1 g/dL (32.0-36.0) Red Cell Distribution Width 14.4 % (11.8-14.3) Platelet Count 256 10^3/uL (140-450) Mean Platelet Volume 7.4 fL (6.9-10.8) Neutrophils (%) (Auto) 79.2 % (37.0-80.0) Lymphocytes (%) (Auto) 13.5 % (10.0-50.0) Monocytes (%) (Auto) 6.6 % (0.0-12.0) Eosinophils (%) (Auto) 0.3 % (0.0-7.0) Basophils (%) (Auto) 0.4 % (0.0-2.0) Neutrophils # (Auto) 7.9 10 ^3/uL (1.6-8.6) Lymphocytes # (Auto) 1.3 10 ^3/uL (0.4-5.4) Monocytes # (Auto) 0.7 10 ^3/uL (0-1.3) Eosinophils # (Auto) 0 10 ^3/uL (0-0.8) Basophils # (Auto) 0 10 ^3/uL (0-0.2) Nucleated Red Blood Cells 0.1 % Sodium Level 143 mmol/L (136-145) Potassium Level 3.6 mmol/L (3.5-5.1) Chloride Level 114 mmol/L (98-107) Carbon Dioxide Level 15 mmol/L (20-31) Anion Gap 14 (5-15) Blood Urea Nitrogen 6 mg/dL (9-23) Creatinine 0.53 mg/dL (0.550-1.02) Glomerular Filtration Rate Calc 113 mL/min (>90) BUN/Creatinine Ratio 11.3 (10.0-20.0) Serum Glucose 101 mg/dL (74-106) Calcium Level 9.8 mg/dL (8.7-10.4) Total Bilirubin 0.4 mg/dL (0.2-1.0) Aspartate Amino Transferase (AST) 38 U/L (13-40) Alanine Aminotransferase (ALT) 25 U/L (7-40) Alkaline Phosphatase 118 U/L (46-116) Total Protein 7.0 g/dL (5.7-8.2) Albumin 4.3 g/dL (3.2-4.8) Urine Color Light-yellow (Yellow) Urine Clarity Clear (Clear) Urine pH 6.5 (5.0-9.0) Urine Specific [place] 1.015 (1.001-1.035) Urine Protein Negative (Negative) Urine Ketones Trace (Negative) Urine Blood Negative /uL (Negative) Urine Nitrite Negative (Negative) Urine Bilirubin Negative (Negative) Urine Urobilinogen Normal mg/dL (Negative) Urine Leukocyte Esterase Negative /uL (Negative) Urine RBC None seen /hpf (0 - 4) Urine Microscopic WBC < 1 /HPF (0-5) Urine Squamous Epithelial Cells None seen /hpf (<5) Urine Bacteria None seen /hpf (None Seen) Urine Glucose Normal mg/dL (Normal) Other Laboratory Tests 08/24/24 06:46 Brief Hx & Hospital Course: The patient is a 49-year-old female with past medical history of seizure and cerebral palsy who presented to [facility] ED for evaluation of fall injury at home. Patient reports she had ground level fall earlier today when she slipped and fall landing badly on her right shoulder and neck area. Patient has been experiencing right hand pain, rating 9/10 numeric scale, weakness, getting worse that prompted this visit. Patient was seen and evaluated in the ED, laboratory data shows WBC 11.6, platelets 282, sodium 139, potassium 3.5, BUN 9, creatinine 0.59, GFR 110, glucose 115, calcium 9.8, blood pressure 140/79, heart rate 79, temperature 98.8 F, O2 saturation 99% on room air. Imaging reports showed no evidence of acute fracture, dislocation, blastic, lytic lesions. Please see medication orders section in the computer. On my assessment, patient denied chest pain, no headache, no dizziness, no loss of consciousness, no nausea, no vomiting, no fever, no chills. Patient was admitted for further evaluation and medical management. all imaging negative remained afebrile, pain got better Condition at Discharge: Good Final Diagnosis/Problems List acute metabolic encephalopathy Right shoulder pain muscular in nature Leukocytosis reactive all infectious workup negative Discharge Disposition: Home Discharge Instruct/Medications Diet: Regular Activity: No Restrictions, As Tolerated Follow Up/Referral: pcp in 7 days Medications: same home meds Discharge Statement: "Patient was advised to return to the ER or call 911 if any headaches, dizziness, shortness of breath, chest pain, abdominal pain, bleeding, fevers, or worsening of medical condition. Patient was counseled about treatment plan, medications, possible side effects, patientverbalized understanding. All questions were answered to the best of my ability. This discharge took greater then 30 minutes in planning, reviewing documentation, counseling the patient, and discussing with other team members." ASSESSMENT ASSESSMENT Assessment acute metabolic encephalopathy Date of Service: Aug 26, 2024 Billing Provider: BRAYDEN BRAY MD Common Visit Codes: [id number] DISCH DAY >30min BRAYDEN BRAY MD Aug 26, 2024 14:49
== END 2024-08-26 12:10 | disposition home or self-care (01) | DRG 555 ==
LOC: ER 18:08 → OVERFLOW 08-23 01:55 → WEST WING 08-23 21:22
PROVIDERS: ADMIT Hospitalist; ATTEND Hospitalist
DX: M25.511 Pain in right shoulder (principal); G93.41 Metabolic encephalopathy; D72.829 Elevated white blood cell count, unspecified; G80.9 Cerebral palsy, unspecified; E66.9 Obesity, unspecified; G40.909 Epilepsy, unspecified, not intractable, without status epilepticus; Z88.8 Allergy status to other drugs, medicaments and biological substances; Z79.899 Other long term (current) drug therapy; Z79.1 Long term (current) use of non-steroidal anti-inflammatories (NSAID); Z79.891 Long term (current) use of opiate analgesic; Z68.35 Body mass index [BMI] 35.0-35.9, adult
CPT/HCPCS: 36415; 70450; 72040; 73030; 73060; 73200; 73562; 80048; 80053; 81001; 85025; 96374; 96375; 97163; 99291; G0378; J2405; J2470